=== PATIENT | male | born 1935 | race Caucasian/White ===

== ENCOUNTER 2017-08-05 12:49 | Inpatient (IN) | payer MEDICARE ==
[~2017-08-05] VITALS: Ht 175.3 cm; Wt 108.7 kg
[~2017-08-05 12:49] MED LIST: ADVI200C9 PO; ASPI81 PO; DEXAMETHASONE SOD PHOS 4 MG/ML VIAL IV ONE; FISH1000 PO; GEMF600 PO; GLUC500C56 PO; HYDR-2768 PO; KETOROLAC TROMETHAMINE 30 MG/ML (IVP) VIAL IV PUSH ONE; LIDOCAINE HCL 1% PF 5 ML SYRINGE OTHER ONE; LISI40TA PO; OMEP20CA5 PO; ONDANSETRON HCL 4 MG/2 ML VIAL IV ONE; PROPOFOL 200 MG/20 ML AMP IV ONE; SIMV20 PO; TAB-TAB PO; ceFAZolin INJ 1,000 MG VIAL IV ONE
[2017-08-05] MEDS ORDERED: POVIDONE IODINE 5% (ANTISEPSIS KIT) 4 APPLICATIONS EACH NARE PRN (13:45)
[2017-08-05] MEDS ORDERED: CHLORHEXIDINE GLUCONATE 2 % 1 PACK (2 CLOTHS) TOPICAL PRN (13:45)
[2017-08-05] MEDS ORDERED: CHLORHEXIDINE GLUCONATE 4% SOLN 120 ML BTL TOPICAL SCH (13:45)
[2017-08-05] MEDS ORDERED: SODIUM CHLORID 0.9% 500 ML IV PRN (13:45)
[2017-08-05] MEDS ORDERED: METOPROLOL TARTRATE 25 MG TAB PO PRN (13:45)
[2017-08-05] MEDS ORDERED: LACTATED RINGER'S 1000 ML IV PRN (13:45)
[2017-08-05] MEDS ORDERED: ASPI-183 PO (14:03)
[2017-08-05 14:16] LABS: AUTOMATED NEUTROPHIL # 5.3 TH/MM3 (1.8-7.7); BASOPHIL # 0.1 TH/MM3 (0-0.2); BASOPHIL % 0.8 % (0.0-2.0); EOSINOPHIL # 0.1 TH/MM3 (0-0.4); EOSINOPHIL % 0.9 % (0.0-4.0); HEMATOCRIT 40.5 % (39.0-51.0); HEMOGLOBIN 13.8 GM/DL (13.0-17.0); LYMPH % 11.6 % (9.0-44.0); LYMPHOCYTE # 0.8 TH/MM3 (1.0-4.8); MEAN CELL VOLUME 88.3 FL (80.0-100.0); MEAN CORPUSCULAR HGB CONC 33.9 % (32.0-36.0); MEAN PLATELET VOLUME 7.6 FL (7.0-11.0); MONO % 8.2 % (0.0-8.0); MONOCYTE # 0.6 TH/MM3 (0-0.9); NEUT % 78.5 % (16.0-70.0); PLATELET COUNT 278 TH/MM3 (150-450); RED BLOOD COUNT 4.59 MIL/MM3 (4.50-5.90); WHITE BLOOD COUNT 6.7 TH/MM3 (4.0-11.0)
[2017-08-05 14:17] LABS: BILIRUBIN, URINE NEG (NEG); BLOOD, URINE NEG (NEG); GLUCOSE,URINE NEG (NEG); KETONE, URINE NEG (NEG); MUCUS URINE FEW /lpf (OCC); NITRITE,URINE NEG (NEG); URINE COLOR YELLOW (YELLW/STRAW); URINE LEUKOCYTE ESTERASE NEG (NEG)
[2017-08-05 14:30] LABS: ALBUMIN 3.6 GM/DL (3.4-5.0); ALT (GPT) 34 U/L (12-78); AST (GOT) 23 U/L (15-37); BICARBONATE 31.1 MEQ/L (21.0-32.0); BLOOD UREA NITROGEN 12 MG/DL (7-18); C-REACTIVE PROTEIN 0.57 MG/DL (0.00-0.30); CALCIUM 9.2 MG/DL (8.5-10.1); CHLORIDE 97 MEQ/L (98-107); CREATININE 0.88 MG/DL (0.60-1.30); GLOMERULAR FILTRATION RATE 83 ML/MIN (>89); GLUCOSE,RANDOM 100 MG/DL (74-106); SODIUM (NA) 135 MEQ/L (136-145)
[2017-08-05 14:33] LABS: ALKALINE PHOSPHATASE 116 U/L (45-117); TOTAL BILIRUBIN ADULT 0.7 MG/DL (0.2-1.0); TOTAL PROTEIN 6.9 GM/DL (6.4-8.2)
[2017-08-05] MEDS ORDERED: GENTAMICIN SULFATE 80 MG/2 ML VIAL ONE ×2 (19:35→23:42)
[2017-08-05] MEDS ORDERED: VANCOMYCIN 500 MG VIAL ONE (19:35)
[2017-08-05] MEDS ORDERED: VANCOMYCIN HCL 1000 MG VIAL ONE (23:42)
[2017-08-05] MEDS ORDERED: ceFAZolin 2 GM PREMIX 0 ML ONE (23:42)
[2017-08-06] VITALS (8 sets, daily range): BP systolic 156–192; BP diastolic 76–97; PULSE 84–99; RESP 17–22; TEMP 96–97.9; O2SAT 93–98
[2017-08-06] MEDS ORDERED: ACETAMINOPHEN/HYDROcodone 325 MG/10 MG TAB PO PRN (00:15)
[2017-08-06] MEDS ORDERED: Vancomycin Consult Pharmacy 1 EA OTHER SCH (00:15)
[2017-08-06] MEDS ORDERED: Post-op Orders (for Pharmacy) XX ONE (00:15)
[2017-08-06] MEDS ORDERED: MORPHINE SULFATE 4 MG/ML INJ IV PUSH PRN (00:15)
[2017-08-06] MEDS ORDERED: diphenhydrAMINE HCL 25 MG CAP PO PRN (00:15)
[2017-08-06] MEDS ORDERED: NALOXONE HCL 0.4 MG/ML AMP IV PUSH PRN (00:15)
[2017-08-06] MEDS ORDERED: *morphine SULFATE 4 MG/ML PERIprocedure ONLY ONE ×2 (00:33→01:01)
[2017-08-06] MEDS ORDERED: DO NOT ADM ANY ANTICOAGULANT DRUGS PRN (00:45)
[2017-08-06] MEDS ORDERED: *morphine SULFATE 8 MG/ML PERIprocedure ONLY ONE (00:49)
[2017-08-06] MEDS ORDERED: VANCOMYCIN 1,000 MG/NS 250 ML IV ONE ×2 (01:00)
[2017-08-06] MEDS: SODIUM CHLOR 0.9% 1000 ML INJ 1,000 ML IV SCH ×2 (01:00→10:15)
[2017-08-06] MEDS ORDERED: METOPROLOL TARTRATE 5 MG/5 ML VIAL ONE (01:12)
--- NOTE | 2017-08-06 01:17 | MP ---
cc: Lizandro Ceja MD DATE OF OPERATION: 08/05/2017 DATE OF PROCEDURE: Was 08/05/2017-08/06/2017. PREOPERATIVE DIAGNOSIS: Draining hematoma, left knee, prior to total knee replacement, status left knee. POSTOPERATIVE DIAGNOSIS: Draining hematoma, left knee, prior to total knee replacement, status left knee. There was no communication with the knee joint. OPERATIVE PROCEDURE: Debridement of skin slough, evacuation of hematoma, left knee and application of wound VAC. SURGEON: Dr. Ceja. ANESTHESIA: General. TECHNIQUE: After induction of general anesthesia, left lower extremity thoroughly prepped with Hibiclens and draped in routine fashion. The larger skin slough was excised to healthy margin of the skin. Tissue obtained from the prepatellar bursa for culture. The hematoma was evacuated. There was, indeed, a fairly large hematoma, much larger than what one would think. Curets were used to debride the area. Four thousand mL of saline with gentamicin in it was used to irrigate it. A foam from the wound VAC was inserted into the hematoma, a flat piece applied over it and a wound VAC was applied and found to be working satisfactorily. The two other areas of black skin discoloration were superficial and these were debrided. Xeroform was applied on the excoriated areas. The patient was transferred to the recovery room in satisfactory condition. The patient tolerated the procedure well. CHANGES AND COMPLICATIONS: None. POSTOPERATIVE CONDITION: Satisfactory. PROGNOSIS: Good. MD IVANA Krueger/CHARLOTTE , 12:31 AM , 01:16 AM
[2017-08-06] MEDS ORDERED: METOPROLOL TARTRATE 5 MG/5 ML VIAL IV PUSH ONE (01:30)
[2017-08-06] MEDS: LISINOPRIL 20 MG TAB PO SCH (09:12)
[2017-08-06] MEDS: ceFAZolin 2 GM PREMIX 50 ML IV SCH ×2 (09:12→17:00)
[2017-08-06] MEDS: PANTOPRAZOLE SOD 40 MG DELAYED RELEASE TAB PO SCH (09:12)
[2017-08-06] MEDS: ACETAMINOPHEN 1000 MG/100 ML 100 ML IV SCH ×2 (09:13→20:00)
[2017-08-06] MEDS: GEMFIBROZIL 600 MG TAB PO SCH ×2 (09:15→21:00)
[2017-08-06] MEDS: DOCUSATE SODIUM 50 MG/SENNA 8.6 MG TAB PO SCH ×2 (09:15→21:00)
[2017-08-06] MEDS: MULTIVITAMIN TAB PO SCH (09:15)
[2017-08-06] MEDS: KETOROLAC TROMETHAMINE 30 MG/ML (IVP) VIAL IVP SCH ×3 (09:16→22:00)
--- NOTE | 2017-08-06 09:37 | MH ---
cc: Lizandro Ceja MD DATE OF ADMISSION: 08/05/2017 ADMITTING DIAGNOSIS: Draining hematoma, left knee. HISTORY OF PRESENT ILLNESS: A total knee replacement arthroplasty performed several years ago and has been doing fine. He fell on this knee 3 weeks ago, resulting in swelling for which he was seen by primary care physicians with x-rays, which apparently were okay. The patient says he had a large swelling, which started draining 3 days ago and that prompted visit to see the undersigned on the morning of 08/05/2017. He was noted to have a draining hematoma with skin slough and, therefore, admitted to the hospital for definitive care. 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 He has high blood pressure and hyperlipidemia. MEDICATIONS: Gemfibrozil, simvastatin, lisinopril, aspirin, ibuprofen, hydrochlorothiazide, multiple vitamins. ALLERGIES: NO KNOWN ALLERGIES TO DRUGS. PHYSICAL EXAMINATION: GENERAL, MUSCULOSKELETAL: Reveals an average built, slightly overweight, white male, who has 3-4+ edema of a deformity, right ankle and foot. Left foot has 2+ edema. Left knee has a large hematoma medial to the previous scar, with 3 areas of black skin, with one of them communicating with the hematoma and draining. No redness or cellulitis noted. He has palpable dorsalis pedis pulse, but absent posterior tibial pulse. Toes are warm and pink, with good capillary filling. No obvious indication of problem with the knee joint itself. X-rays of the left knee reveal satisfactory appearance of the total knee. HEENT: Head is normocephalic. Pupils reactive to light. Face symmetrical. CARDIOVASCULAR: Regular rhythm, no murmurs. LUNGS: Clear to auscultation. PLAN: The patient to be admitted to the hospital for evacuation of the hematoma, skin debridement and probable application of wound VAC. He will also be put on antibiotics after tissue obtained for culture. MD IVANA Krueger/ROCIO , 12:29 AM , 12:49 AM
[2017-08-06] MEDS: HYDROCHLOROTHIAZIDE 25 MG TAB PO SCH (10:50)
[2017-08-06] MEDS: VANCOMYCIN INJ 2,000 MG in SODIUM CHLORID 0.9% 500 ML INJ 500 ML IV SCH (12:49)
--- NOTE | 2017-08-06 14:33 | HHI.FF ---
Face to Face Verification Diagnosis: (1) Hematoma and contusion Physical Therapy Gait training Knee: Protocol: Left, Full weight bearing Nursing Nursing: Other (change wound vac sat/sat/sat) Dressing Changes: Other (as above) I have seen patient Ayush Stewart on 08/06/17. My clinical findings support the need for the requested home health care services because: Limited ability to care for self I certify that my clinical findings support that this patient is homebound because: Unable to use public transportation Lizandro Ceja MD Aug 06, 2017 14:33
[2017-08-06] MEDS ORDERED: ADJUSTABLE COMM1 MIS (14:34)
[2017-08-06] MEDS ORDERED: WALKER WHEELS/F1 MIS (14:34)
--- NOTE | 2017-08-06 15:35 | EKG ---
Date Performed: 08/05/2017 Time Performed: 13:47:41 PTAGE: 81 years EKG: ATRIAL FIBRILLATION POSSIBLE RIGHT VENTRICULAR CONDUCTION DELAY ABNORMAL RHYTHM ECG Since t he PREVIOUS TRACING , no significant change noted PREVIOUS TRACIN12/08/2010 08.36 DOCTOR: David Cuevas Interpretating Date/Time 08/06/2017 15:33:39
--- NOTE | 2017-08-06 18:03 | PD.CONS ---
HPI Service [facility] Hospitalists Consult Requested By Dr. Ceja, Orthopedic Surgeon Primary Care Physician Wilfrido Edwards Jr, MD Diagnoses: History of Present Illness A total knee replacement arthroplasty performed several years ago and has been doing fine. He fell on this knee 3 weeks ago, resulting in swelling for which he was seen by primary care physicians with x-rays, which apparently were okay. The patient says he had a large swelling, which started draining 3 days ago and that prompted visit to see the undersigned on the morning of 08/05/2017. He was noted to have a draining hematoma with skin slough and, therefore, admitted to the hospital for definitive care. Medical team consulted to assist with pt's chronic medical conditions. Review of Systems Constitutional: DENIES: Diaphoretic episodes, Fatigue, Fever, Weight gain, Weight loss, Chills, Dizziness, Change in appetite, Night Sweats Endocrine: DENIES: Heat/cold intolerance, Polydipsia, Polyuria, Polyphagia Eyes: DENIES: Blurred vision, Diplopia, Eye inflammation, Eye pain, Vision loss , Photosensitivity, Double Vision Ears, nose, mouth, throat: DENIES: Tinnitus, Hearing loss, Vertigo, Nasal discharge, Oral lesions, Throat pain, Hoarseness, Ear Pain, Running Nose, Epistaxis, Sinus Pain, Toothache, Odynophagia Respiratory: DENIES: Apneas, Cough, Snoring, Wheezing, Hemoptysis, Sputum production, Shortness of breath Cardiovascular: DENIES: Chest pain, Palpitations, Syncope, Dyspnea on Exertion , PND, Lower Extremity Edema, Orthopnea, Claudication Gastrointestinal: DENIES: Abdominal pain, Black stools, Bloody stools, BRB per rectum, Constipation, Diarrhea, GERD, Nausea, Reflux, Vomiting, Difficulty Swallowing, Anorexia Genitourinary: DENIES: Urinary frequency, Urinary incontinence, Urgency, Hematuria, Dysuria, Nocturia Musculoskeletal: COMPLAINS OF: Joint pain, Joint Swelling, DENIES: Muscle aches , Stiffness, Back pain, Neck pain Integumentary: DENIES: Abnormal pigmentation, Nail changes, Pruritus, Rash Hematologic/lymphatic: DENIES: Bruising, Lymphadenopathy Immunologic/allergic: DENIES: Eczema, Urticaria Neurologic: COMPLAINS OF: Abnormal gait, DENIES: Headache, Localized weakness, Paresthesias, Seizures, Speech Problems, Tremor, Poor Balance Psychiatric: DENIES: Anxiety, Confusion, Mood changes, Depression, Hallucinations, Agitation, Suicidal Ideation, Homicidal Ideation, Delusions, History of Bipolar, History of Schizophrenia Past Family Social History Past Medical History - HTN - Atrial Fibrillation - Hyperlipidemia Past Surgical History - left TKA Reported Medications Reported Meds & Active Scripts Active Walker with Front Wheels (Device) 1 Mis Mis Ea .XX DIRECTED Adjustable Commode 3-in-1 (Device) 1 Mis Mis Ea .XX DIRECTED Reported Aspirin 325 Mg Tab 325 Mg PO DAILY 1 Days Advil (Ibuprofen) 200 Mg Cap 600 Mg PO PRN Multivitamin (Multivitamins) 1 Tab Tab 1 Tab PO DAILY Fish Oil 1,000 Mg Cap 6,000 Mg PO DAILY Hctz (Hydrochlorothiazide) 25 Mg Tab 25 Mg PO DAILY Prinivil 40 mg (Lisinopril) 40 Mg Tab 40 Mg PO DAILY Zocor (Simvastatin) 20 Mg Tab 40 Mg PO HS Lopid (Gemfibrozil) 600 Mg Tab 600 Mg PO BID Allergies: Coded Allergies: No Known Allergies (Verified Allergy, Unknown, 08/05/17) Family History non-contributory Social History - no tobacco - no alcohol - no illicit street drugs Physical Exam Vital Signs Vital Signs Date Time Temp Pulse Resp B/P (MAP) Pulse Ox O2 Delivery O2 Flow Rate FiO2 08/06/17 16:00 97.1 84 18 173/76 (108) 95 08/06/17 13:04 98 21 08/06/17 12:00 96.0 86 18 157/85 (109) 95 08/06/17 11:00 20 08/06/17 08:00 97.0 90 20 191/93 (125) 96 08/06/17 05:35 97.6 88 17 156/86 (109) 94 08/06/17 02:30 97.9 87 17 192/97 (128) 93 08/06/17 01:30 98.0 75 10 167/79 (108) 99 Nasal Cannula 3 08/06/17 01:15 82 10 177/82 (113) 97 Nasal Cannula 3 08/06/17 01:00 87 18 163/79 (107) 95 Nasal Cannula 2 08/06/17 00:45 89 17 190/85 (120) 98 Nasal Cannula 2 08/06/17 00:30 93 17 181/84 (116) 98 Nasal Cannula 3 08/06/17 00:15 93 17 149/61 (90) 93 Nasal Cannula 3 08/06/17 00:14 97.7 94 20 150/69 (96) 93 Nasal Cannula 3 08/05/17 19:18 98.0 91 20 193/93 (126) 92 Physical Exam GENERAL: This is a well-nourished, well-developed patient, in no apparent distress. SKIN: No rashes, ecchymoses or lesions. Cool and dry. HEAD: Atraumatic. Normocephalic. No temporal or scalp tenderness. EYES: Pupils equal round and reactive. Extraocular motions intact. No scleral icterus. No injection or drainage. ENT: Nose without bleeding, purulent drainage or septal hematoma. Throat without erythema, tonsillar hypertrophy or exudate. Uvula midline. Airway patent. NECK: Trachea midline. No JVD or lymphadenopathy. Supple, nontender, no meningeal signs. CARDIOVASCULAR: Regular rate and rhythm without murmurs, gallops, or rubs. RESPIRATORY: Clear to auscultation. Breath sounds equal bilaterally. No wheezes , rales, or rhonchi. GASTROINTESTINAL: Abdomen soft, non-tender, nondistended. No hepato-splenomegaly , or palpable masses. No guarding. MUSCULOSKELETAL: Extremities without clubbing, cyanosis, or edema. No joint tenderness, effusion, or edema noted. No calf tenderness. Negative Homans sign bilaterally. NEUROLOGICAL: Awake and alert. Cranial nerves II through XII intact. Motor and sensory grossly within normal limits. Five out of 5 muscle strength in all muscle groups. Normal speech. Laboratory Date/Time Source Procedure Growth Status 08/05/17 23:56 Wound Knee Fungal Smear - Final NO FUNGAL ELEMENTS SEEN. Resulted 08/05/17 23:56 Wound Knee Fungal Culture Pending Resulted Result Diagram: 08/05/17 1400 08/05/17 1400 Assessment and Plan Problem List: (1) Hematoma and contusion ICD Codes: T14.8XXA - Other injury of unspecified body region, initial encounter Plan: - management per Orthopedic service - PT - Discharge to home with [facility] when okay with Orthopedist (2) Atrial fibrillation, chronic ICD Codes: I48.2 - Chronic atrial fibrillation Status: Chronic Plan: - observe on telemetry - continue metoprolol (3) HTN (hypertension) ICD Codes: I10 - Essential (primary) hypertension Status: Chronic Plan: - stable - continue outpt regimen Luis Antonio Ortiz DO Aug 06, 2017 18:03
[2017-08-06] MEDS ORDERED: PRAVASTATIN SOD 80 MG TAB PO SCH (21:00)
[2017-08-06] MEDS ORDERED: ENOXAPARIN SODIUM 40 MG/0.4 ML SYRINGE SQ SCH (23:00)
[2017-08-07] VITALS: BP 167/74; PULSE 81; RESP 22; TEMP 97.2; O2SAT 91
[2017-08-07 04:00] VITALS: BP 154/88
[2017-08-07] MEDS: KETOROLAC TROMETHAMINE 30 MG/ML (IVP) VIAL IVP SCH ×2 (05:36→14:45)
[2017-08-07 08:00] VITALS: BP 169/84; PULSE 98; RESP 17; TEMP 96.7; O2SAT 93
[2017-08-07] MEDS: ACETAMINOPHEN 1000 MG/100 ML 100 ML IV SCH (08:00)
[2017-08-07] MEDS: ceFAZolin 2 GM PREMIX 50 ML IV SCH ×2 (08:00)
[2017-08-07] MEDS ORDERED: amLODIPine BESYLATE 5 MG TAB PO SCH (09:00)
--- NOTE | 2017-08-07 09:22 | PD.ORT.PN ---
Subjective Post Op Day #: 2 Pain Scale: 1 Subjective Remarks Get me out of here Range of Motion to 90 degrees Distance Walked to bathroom Objective Vitals Microbiology Date/Time Source Procedure Growth Status 08/05/17 23:56 Wound Knee Fungal Smear - Final NO FUNGAL ELEMENTS SEEN. Resulted 08/05/17 23:56 Wound Knee Fungal Culture Pending Resulted Vital Signs Date Time Temp Pulse Resp B/P (MAP) Pulse Ox O2 Delivery O2 Flow Rate FiO2 08/07/17 09:01 21 08/07/17 04:00 154/88 (110) 08/07/17 00:00 97.2 81 22 167/74 (105) 91 08/06/17 20:00 97.0 99 22 95 08/06/17 20:00 160/92 (114) 08/06/17 19:07 95 08/06/17 16:00 97.1 84 18 173/76 (108) 95 08/06/17 13:04 98 21 08/06/17 12:00 96.0 86 18 157/85 (109) 95 08/06/17 11:00 20 I/O 08/06/17 08/06/17 08/06/17 08/07/17 08/07/17 08/07/17 07:00 15:00 23:00 07:00 15:00 23:00 Intake Total 1770 ml 960 ml 220 ml Output Total 705 ml 320 ml Balance 1065 ml 960 ml -100 ml Intake Oral 120 ml 960 ml 220 ml IV Total 1350 ml Other 300 ml Output Urine Total 700 ml 320 ml Estimated Blood Loss 5 ml # Voids 5 # Bowel Movements 0 0 Result Diagram: 08/05/17 1400 08/05/17 1400 Objective Remarks sitting OOB, wound vac functioining. He has knee bent to 90m degrees, moves foot well Assessment & Plan Ortho Post Op Day #: 2 Problem List: Assessment and Plan when vac dressing changed, and C/S negative, can be sent home with [facility] No Rx s To see me 08/19, to call for Lizandro Barger MD Aug 07, 2017 09:22
[2017-08-07] MEDS: PANTOPRAZOLE SOD 40 MG DELAYED RELEASE TAB PO SCH (10:01)
[2017-08-07] MEDS: HYDROCHLOROTHIAZIDE 25 MG TAB PO SCH (10:02)
[2017-08-07] MEDS: DOCUSATE SODIUM 50 MG/SENNA 8.6 MG TAB PO SCH (10:02)
[2017-08-07] MEDS: GEMFIBROZIL 600 MG TAB PO SCH (10:02)
[2017-08-07] MEDS: LISINOPRIL 20 MG TAB PO SCH (10:02)
[2017-08-07] MEDS: MULTIVITAMIN TAB PO SCH (10:02)
[2017-08-07] MEDS: METOPROLOL TARTRATE 50 MG TAB PO SCH ×2 (10:02→14:44)
[2017-08-07 10:58] LABS: HEMATOCRIT 42.1 % (39.0-51.0); HEMOGLOBIN 14.4 GM/DL (13.0-17.0); MEAN CELL VOLUME 88.6 FL (80.0-100.0); MEAN CORPUSCULAR HEMOGLOBIN 30.4 PG (27.0-34.0); MEAN CORPUSCULAR HGB CONC 34.3 % (32.0-36.0); MEAN PLATELET VOLUME 7.5 FL (7.0-11.0); PLATELET COUNT 264 TH/MM3 (150-450); RED BLOOD COUNT 4.75 MIL/MM3 (4.50-5.90); RED CELL DISTRIBUTION WIDTH 14.4 % (11.6-17.2); WHITE BLOOD COUNT 9.4 TH/MM3 (4.0-11.0)
[2017-08-07 11:13] LABS: BICARBONATE 26.7 MEQ/L (21.0-32.0); CALCIUM 8.8 MG/DL (8.5-10.1); CREATININE 1.01 MG/DL (0.60-1.30)
[2017-08-07 12:00] VITALS: BP 167/78; PULSE 88; RESP 18; TEMP 98.2; O2SAT 93
[2017-08-07] MEDS: VANCOMYCIN INJ 2,000 MG in SODIUM CHLORID 0.9% 500 ML INJ 500 ML IV SCH (14:45)
[2017-08-07 16:00] VITALS: BP 177/95; PULSE 90; RESP 18; TEMP 97.6; O2SAT 97
[2017-08-07 21:23] VITALS: O2SAT 95
[2017-08-09] MEDS ORDERED: PHARMACY ORDERED LAB ONE (11:45)
== END 2017-08-07 23:00 | disposition home health service (06) | DRG 605 ==
LOC: HSDC 12:49 → HOCA 08-06 01:50
PROVIDERS: ADMIT Orthopaedic Surgery; ATTEND Orthopaedic Surgery
PROC: 2W1MX6Z Compression of Left Lower Extremity using Pressure Dressing (ICD-10-PCS; 2017-08-05)
PROC: 0Y9G0ZX Drainage of Left Knee Region, Open Approach, Diagnostic (ICD-10-PCS; principal; 2017-08-05 23:37)
DX: S80.02XA Contusion of left knee, initial encounter (principal); I48.2 Chronic atrial fibrillation; W19.XXXA Unspecified fall, initial encounter; Z96.652 Presence of left artificial knee joint; I10 Essential (primary) hypertension; E78.5 Hyperlipidemia, unspecified; E66.3 Overweight; Z68.35 Body mass index [BMI] 35.0-35.9, adult
CPT/HCPCS: 80048; 80053; 81001; 82948; 85025; 85027; 85652; 86140; 87015; 87070; 87102; 87116; 87176; 87205; 87206; 93005; 94150; J0131; J0690; J1100; J1580; J1650; J1885; J2270; J2405; J3010; J3370; J7030; J7040; J7120